=== PATIENT | female | born 1980 ===

== ENCOUNTER 2017-05-21 07:27 | Inpatient (IN) | payer BC ==
[2017-05-21] MEDS ORDERED: Nalbuphine 20 MG/1 ML Amp IVPUSH PRN (08:00)
[2017-05-21] MEDS ORDERED: Oxytocin/Lactated Ringers 10 UNIT/1,000 ML BAG IV SCH (08:00)
[2017-05-21] MEDS ORDERED: Sodium Chloride 0.9% 10 ML Syringe FLUSH PRN (08:00)
[2017-05-21] MEDS: Lactated Ringers 1,000 ML IV SCH ×3 (08:10→12:30)
[2017-05-21] MEDS ORDERED: Ampicillin 2 GM in Sodium Chloride 0.9% 100 ML IV ONE (08:15)
--- NOTE | 2017-05-21 10:20 | HP ---
DATE OF ADMISSION: 05/21/2017 ADMISSION DIAGNOSIS: Term at 38 and 1/7th weeks gestational age, active labor, advanced cervical dilation. HISTORY OF PRESENT ILLNESS: The patient is a 36-year-old 5, para 4-0-0-4, female who is admitted in active labor. Her cervix is 5 to 6 cm dilated upon admission. She was esther approximately every 2 to 3 minutes/moderate intensity. She has a bulging bag of moreno. Her AUSTIN is 06/03/2017 as determined by an early ultrasound done at 19 and 5/7th weeks-specifically on 01/12/2015. Her last menstrual period was uncertain. She is admitted for labor and delivery. 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 Her LMP was uncertain and started on 07/09/2016. Because of the uncertainty, her AUSTIN is set by a 19 and 5/7th week ultrasound. It is confirmed by ultrasound done on 01/14/2017, 01/23/2017, and 02/26/2017. She is esther well and is not requesting any pain medication at this time. Her past history is significant for 4 vaginal deliveries occurring in 2002, 2006, 2007, 2010. First one was a female infant, last 3 have been male . Largest baby was 7 pounds, 10 ounces. All children are born in [place]. The patient developed some blood clot after delivery. She apparently needed a blood transfusion for the past and all those clots. Her has been significant for group B strep carrier status. She has gestational diabetes but very well controlled with diet. Her Cromwell testing was negative. She had late care. hemorrhage after second delivery with blood transfusion of several units. She has had some pruritus gravidarum for which she has been treated with Benadryl. She has had UTIs in . Her weight gain during has been from 178 pounds up to 187 pounds during the last half in the for approximately 10 pound weight gain. Her blood pressures have been normal. Fundal height growth has been appropriate. Laboratory testing in , blood is A positive with a negative antibody screen. She is rubella immune. RPR is nonreactive. Group B strep screen was positive on urine culture. Hepatitis B, surface antigen, and HIV assays were both negative. Her gonorrhea and chlamydia were both negative. Her second trimester testing showed a one hour GTT of 211. Her 3 hour was abnormal with a fasting blood sugar of 113, a 1 hour of 259 mg/dL, a 2 hour of 247 mg/dL, and a 3-hour blood sugar of 171 mg/dL. Platelets were 242 and hemoglobin of 13.0. ALLERGIES: None. CURRENT MEDICATIONS: 1. vitamins 1 daily. 2. Tylenol p.r.n. PAST MEDICAL HISTORY: 1. Vaginal delivery x4. 2. hemorrhage with a transfusion with second delivery. PAST SURGICAL HISTORY: Unremarkable. FAMILY HISTORY: Mother and father with diabetes and hypertension respectively. No related problems noted in the family. No anesthesia, bleeding, or blood clotting problems noted. SOCIAL HISTORY: The patient is . is Omari Jalloh. They live in [place], [place]. She does not work outside the home. She has not use any significant amounts of alcohol, drugs, or tobacco. REVIEW OF SYSTEMS: SKIN: Negative. CARDIOVASCULAR: No chest pain or exercise intolerance. RESPIRATORY: No shortness of breath or infectious symptoms. BREASTS: Negative. GI: Normal. : Findings consistent with . Musculoskeletal: Minimal edema to moderate edema in bilateral lower extremities. NEUROLOGIC: Normal. PHYSICAL EXAMINATION: VITAL SIGNS: On last evaluation in clinic, her blood pressure 124/86, weight was 186 pounds with pregravida weight reported as 178. heart rate is 138. SKIN: Warm, dry, without lesions. HEENT, NECK, and BACK: Within normal limits. LUNGS: Clear with good breath sounds in all lung clemente. CARDIOVASCULAR: Shows regular rate and rhythm without murmurs. BREAST: Not done today, having been done at first visit and found to be normal. ABDOMEN: Protuberant with , with a fundal height on last evaluation 37 cm. Baby is felt to be in a vertex presentation by Yared maneuvers. : Cervical exam shows cervix to be 5 to 6 cm, soft, very stretchy, 95% effaced, felt to be head. EXTREMITIES AND NEUROLOGICAL: Grossly within normal limits. ASSESSMENT: 1. Term intrauterine at 38 and 1/7th weeks gestational age, active labor with advanced cervical dilation. 2. Group B strep positive. The patient has received first dose of antibiotics. 3. Gestational diabetes-diet controlled with good sugars during the . 4. The patient is okay of epidural, but wants to try natural delivery. 5. The patient plans to nurse. PLAN: 1. Anticipate normal spontaneous vaginal delivery. 2. Antibiotics per protocol. Use ampicillin. 3. Make Pediatrics aware for gestational diabetes status. 4. Encouraged nursing after delivery. MMODAL /[id number]
[2017-05-21] MEDS ORDERED: Ampicillin 1 GM in Sodium Chloride 0.9% 100 ML IV SCH (12:00)
--- NOTE | 2017-05-21 13:21 | PCM.SN ---
- Free Text/Narrative Note: Patricia is a 36-year-old 5 now para 5005 female who was admitted on the a.m. 05/21/2017 in active labor. On admission she was approximate 5 cm dilated with bulging bag moreno. heart tones were somewhat flat but no significant decelerations are noted. She pushed approximately 3 contractions and delivered a viable, farmer, 3860 g (8 lbs. 8 oz.), 21.0 inch long male with Apgars of 8 and 9. She delivered over an intact perineum. Pitocin was started IV immediately after delivery the baby. Cord was clamped 2 and cut by the father of the baby. Because of the meconium- stained amniotic fluid the baby was then taken to the warmer for evaluation and treatment under the care of Dr. Duane Vergara dye boarding machine operator who was present for the delivery. Cord blood was obtained. The placenta and then delivered without problems in a [place] presentation. It appeared intact and complete. It was discarded per patient desire. Perineum was inspected and found to be intact. No significant lacerations or abrasions were noted. Patient's uterus firmed up well with Pitocin and no significant bleeding was noted. Estimated blood loss was 100 mL. Patient plans to nurse. Condition: Good
[2017-05-21] MEDS ORDERED: Docusate Sodium 100 MG Cap PO PRN (14:15)
[2017-05-21] MEDS ORDERED: Benzocaine/Menthol 20%-0.5% Spray 56 GM Canister TOP PRN (14:15)
[2017-05-21] MEDS ORDERED: Acetaminophen 325 MG Tab PO PRN (14:15)
[2017-05-21] MEDS ORDERED: Lanolin 100% Cream 7 GM Tube TOP PRN (14:15)
[2017-05-21] MEDS ORDERED: Witch Hazel Medicated Pads 100/Jar TOP PRN (14:15)
[2017-05-21] MEDS: Ibuprofen 600 MG Tab PO PRN (15:44)
[2017-05-22] MEDS: Ibuprofen 600 MG Tab PO PRN ×3 (02:35→19:00)
--- NOTE | 2017-05-22 07:55 | PCM.SN ---
- Free Text/Narrative Note: Patricia is PPD 1-doing well. Minimal lochia, voiding well. And without problems. She is nursing. Patient is afebrile, vital signs stable. Abdomen soft, nontender. Uterus at the umbilicus. Legs nontender. Assessment/plan: day 1-good recovery. Recommend routine cares. Home tomorrow per patient desire.
[2017-05-22] MEDS ORDERED: Diphtheria,Pertussis(Acell),Tetanus Vaccine 0.5 ML SDV IM ONE (09:04)
[2017-05-23] MEDS: Ibuprofen 600 MG Tab PO PRN (05:11)
--- NOTE | 2017-05-23 08:30 | PCM.DCSUM1 ---
Discharge Summary - Hospital Course Free Text/Narrative:: Patricia is a 36-year-old 5 now para 5005 female who was admitted on the a.m. 05/21/2017 in active labor. On admission she was approximate 5 cm dilated with bulging bag moreno. heart tones were somewhat flat but no significant decelerations are noted. She pushed approximately 3 contractions and delivered a viable, farmer, 3860 g (8 lbs. 8 oz.), 21.0 inch long male with Apgars of 8 and 9. She delivered over an intact perineum. Pitocin was started IV immediately after delivery the baby. Cord was clamped 2 and cut by the father of the baby. Because of the meconium- stained amniotic fluid the baby was then taken to the warmer for evaluation and treatment under the care of Dr. Duane Vergara lpn rn hospice who was present for the delivery. Cord blood was obtained. The placenta and then delivered without problems in a [place] presentation. It appeared intact and complete. It was discarded per patient desire. Perineum was inspected and found to be intact. No significant lacerations or abrasions were noted. Patient's uterus firmed up well with Pitocin and no significant bleeding was noted. Estimated blood loss was 100 mL. Patient plans to nurse. patient is done well. She is nursing well. She has minimal lochia, she is voiding well. She is desiring to be discharged home. - Discharge Data Discharge Date: 05/23/17 Discharge Disposition: Home, Self-Care 01 Condition: Good - Patient Instructions Diet: Regular Diet as Tolerated (nursing diet was increased calories and calcium as directed.) Activity: As Tolerated (No intercourse or tampons until bleeding resolves) Driving: May Drive Today Showering/Bathing: May Shower (May take a bath) Notify Provider of: Fever, Increased Pain, Swelling and Redness, Nausea and/or Vomiting - Discharge Plan Home Medications: Home Meds PNV95/Ferrous Fumarate/FA [ Tablet] 1 each PO DAILY 01/12/17 [History] Ibuprofen [IJD: Ibuprofen] 600 mg PO Q4H PRN #30 tablet 05/23/17 [Rx] Referrals: Ke Kay MD [Physician] - (Return to clinic-Dr. kay-6 weeks.) - Discharge Summary/Plan Comment DC Time >30 min.: No Discharge Summary/Plan Comment: Discharge instructions: 1. Discharge home 2. Regular, high fiber, nursing diet was increased calories and calcium as directed. 3. Precautions given concern increased pain, bleeding, temperature, signs/ symptoms of DVT/PE. 4. Medications per home medication was printed, discussed with and given to the patient. 5. Return to clinic-Dr. diop-6 weeks. Diagnosis: Term -delivered Condition: Good - Patient Data Vitals - Most Recent: Last Vital Signs Temp 36.4 C 05/23/17 04:12 Pulse 81 05/23/17 04:12 Resp 16 05/23/17 04:12 BP 138/83 05/23/17 04:12 Pulse Ox 97 05/23/17 04:12 Weight - Most Recent: 84.731 kg I&O - Last 24 hours: Intake & Output 05/22/17 05/23/17 05/23/17 22:59 06:59 14:59 Intake Total 120 Balance 120 Med Orders - Current: Current Medications Acetaminophen (Tylenol) 650 mg PO Q4H PRN PRN Reason: mild pain or fever Benzocaine/Menthol (Dermoplast Pain Relief [place]) 0 gm TOP ASDIRECTED PRN PRN Reason: Perineal Comfort Measure Docusate Sodium (Colace) 100 mg PO BID PRN PRN Reason: Constipation Emollient Ointment (Lansinoh Hpa) 0 gm TOP ASDIRECTED PRN PRN Reason: Sore Nipples Ibuprofen (Motrin) 600 mg PO Q4H PRN PRN Reason: Mild pain or fever Last Admin: 05/23/17 05:11 Dose: 600 mg Witch Angelica (Tucks) 1 pad TOP ASDIRECTED PRN PRN Reason: Hemorrhoid pain Discontinued Medications Diphtheria/Tetanus/Acell Pertussis (Adacel) 0.5 ml IM .ONCE ONE Stop: 05/22/17 09:05 Last Admin: 05/22/17 11:06 Dose: 0.5 ml Ampicillin Sodium 2 gm/ Sodium (Chloride) 100 mls @ 200 mls/hr IV ONETIME ONE Stop: 05/21/17 08:44 Last Admin: 05/21/17 08:10 Dose: 200 mls/hr Ampicillin Sodium 1 gm/ Sodium (Chloride) 100 mls @ 200 mls/hr IV Q4H [place] Last Admin: 05/21/17 11:50 Dose: 200 mls/hr Lactated Ringer's (Ringers, Lactated) 1,000 mls @ 100 mls/hr IV ASDIRECTED [place] Last Admin: 05/21/17 12:30 Dose: 500 mls/hr Oxytocin/Lactated Ringer's (Pitocin In Lr 10 Units/1,000 Ml) 10 unit in 1,000 mls @ 500 mls/hr IV .CONTINUOUS [facility] Last Admin: 05/21/17 13:00 Dose: 500 mls/hr Nalbuphine HCl (Nubain) 10 mg IVPUSH Q2H PRN PRN Reason: Pain (moderate 4-6) Sodium Chloride (Saline Flush) 10 ml FLUSH ASDIRECTED PRN PRN Reason: Keep Vein Open *Q Meaningful Use (DIS) - VTE *Q VTE Criteria *Q: - Stroke *Q Stroke Criteria *Q: - AMI *Q AMI Criteria *Q:
[2017-05-23 13:32] VITALS: BP 143/72
== END 2017-05-23 13:35 | disposition home or self-care (01) | DRG 560 ==
LOC: JD.OBCHECK 07:27 → JD.OB 07:29 → JD.OBCHECK 08:00 → OBSVTOIN 12:57 → JD.OB 12:57
PROVIDERS: ADMIT Obstetrics & Gynecology; ATTEND Obstetrics & Gynecology
PROC: 10E0XZZ Delivery of Products of Conception, External Approach (ICD-10-PCS; principal; 2017-05-21)
PROC: 10907ZC Drainage of Amniotic Fluid, Therapeutic from Products of Conception, Via Natural or Artificial Opening (ICD-10-PCS; 2017-05-21)
PROC: 3E0234Z Introduction of Serum, Toxoid and Vaccine into Muscle, Percutaneous Approach (ICD-10-PCS; 2017-05-21)
DX: O99.824 Streptococcus B carrier state complicating childbirth (principal); Z3A.38 38 weeks gestation of pregnancy; Z37.0 Single live birth; O24.420 Gestational diabetes mellitus in childbirth, diet controlled; Z23 Encounter for immunization; O69.81X0 Labor and delivery complicated by cord around neck, without compression, not applicable or unspecified; O77.0 Labor and delivery complicated by meconium in amniotic fluid
CPT/HCPCS: 36415; 85027; 90715; A9270-GY; J0290; J2590; J7030; J7120

== ENCOUNTER 2017-05-24 03:26 | Observation (INO) | payer BC ==
[2017-05-24] MEDS ORDERED: Naloxone 2 MG/2 ML Syringe ONE (03:33)
--- NOTE | 2017-05-24 04:01 | EDM.PDOC ---
ED HPI GENERAL MEDICAL PROBLEM - General Chief Complaint: Neuro Symptoms/Deficits Stated Complaint: BACK & STOMACH PAIN Time Seen by Provider: 05/24/17 03:26 - History of Present Illness INITIAL COMMENTS - FREE TEXT/NARRATIVE: 36-year-old female presents emergency room with decreased level of consciousness and shortness of breath. The patient is a 5 para 5 who is now 3 days . Yesterday she was discharged from the hospital. Upon arriving home she noticed some back pain she's been having significant back pain for the last 3 months after a fall. The pain seems to be in the upper lumbar region. She's had no imaging done because of the . After she got home from the hospital she noticed some shortness of breath. About 1:00 this morning her noticed that she was moaning and breathing an easily. After this gone on for a while he noticed that she was less responsive and wouldn't answer questions he and a coworker carried the patient out to the car where she was brought to the hospital where she had to be helped with 2 people out of the car into a wheelchair. The patient had gestational diabetes with this . About 3 months ago she had a syncopal type episode and fell and her back is been hurting her %. This is the same type of back pain she is describing at this point. 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: Endocrine/Metabolic History: Reports: Diabetes, Gestational Other Endocrine/Metabolic History: diet controlled gestational diabetes Hematologic History: Reports: Blood Transfusion(s) Dermatologic History: Reports: Other (See Below) Other Dermatologic History: pruritus gravidarum Social & Family History - Family History Family Medical History: Noncontributory - Tobacco Use Smoking Status *Q: Never Smoker Second Hand Smoke Exposure: No - Recreational Drug Use Recreational Drug Use: No ED ROS GENERAL - Review of Systems Review Of Systems: See Below Constitutional: Reports: No Symptoms HEENT: Reports: No Symptoms Respiratory: Reports: Shortness of Breath, Pleuritic Chest Pain. Denies: Wheezing, Cough, Sputum Cardiovascular: Reports: No Symptoms Endocrine: Reports: No Symptoms GI/Abdominal: Reports: No Symptoms : Reports: Other (What sounds like a normal course) Musculoskeletal: Reports: Back Pain Skin: Reports: No Symptoms Neurological: Reports: Other (As stated above) Psychiatric: Reports: No Symptoms ED EXAM, NEURO - Physical Exam Exam: See Below Exam Limited By: Other (The patient was minimally responsive upon arrival would not answer questions) General Appearance: Other (Upon arrival patient is minimally responsive after aggressive sternal rub the patient did wake up and stayed awake and eventually cleared. It appears there is a typo on the pulse oximetry she was 100% on room air) Eye Exam: Bilateral Eye: EOMI, Normal Inspection, PERRL Ears: Normal External Exam, Normal Canal, Hearing Grossly Normal, Normal TMs Nose: Normal Inspection, Normal Mucosa, No Blood Throat/Mouth: Normal Inspection Head Exam: Atraumatic, Normocephalic Neck: Normal Inspection, Supple, Non-Tender, Full Range of Motion. No: Lymphadenopathy (L), Lymphadenopathy (R) Respiratory/Chest: No Respiratory Distress, Lungs Clear, Normal Breath Sounds Cardiovascular: Regular Rate, Rhythm, No Edema, No Murmur GI/Abdominal: Normal Bowel Sounds, Soft, Other (She has some right upper quadrant discomfort. Her fundal height is perhaps a little higher than one would expect vaginal discharge is not excessive) Neurological: Other (Patient is more alert at this time and answering questions appropriately) Course - Vital Signs Last Recorded V/S: Last Vital Signs Temp 36.4 C 05/24/17 14:57 Pulse 70 05/24/17 14:57 Resp 14 05/24/17 14:57 BP 121/78 05/24/17 14:57 Pulse Ox 97 05/24/17 14:57 - Orders/Labs/Meds Labs: Laboratory Tests 05/24/17 05/24/17 05/24/17 Range/Units 03:34 03:35 03:35 WBC 9.41 (3.98-10.04) K/mm3 RBC 4.04 (3.98-5.22) M/mm3 Hgb 11.8 (11.2-15.7) gm/L Hct 35.1 (34.1-44.9) % MCV 86.9 (79.4-94.8) fl MCH 29.2 (25.6-32.2) pg MCHC 33.6 (32.2-35.5) g/dl RDW Std Deviation 40.5 (36.4-46.3) fL Plt Count 226 (182-369) K/mm3 MPV 10.6 (9.4-12.3) fl Neut % (Auto) 66.2 (34.0-71.1) % Lymph % (Auto) 24.3 (19.3-51.7) % [place] % (Auto) 8.3 (4.7-12.5) % Eos % (Auto) 1.0 (0.7-5.8) Baso % (Auto) 0.1 (0.1-1.2) % Neut # (Auto) 6.23 H (1.56-6.13) K/mm3 Lymph # (Auto) 2.29 (1.18-3.74) K/mm3 [place] # (Auto) 0.78 H (0.24-0.36) K/mm3 Eos # (Auto) 0.09 (0.04-0.36) K/mm3 Baso # (Auto) 0.01 (0.01-0.08) K/mm3 PT (8.0-13.0) SECONDS INR APTT (22-36) SECONDS D-Dimer, Quantitative (0.19-0.59) mg/L Puncture Site ABG pH (7.35-7.45) ABG pCO2 (35.0-45.0) mmHg ABG pO2 (80.0-100.0) mmHg ABG HCO3 (22.0-26.0) meq/L ABG O2 Saturation (96.0-97.0) % ABG Base Excess (-2-2.0) Fletcher Test FiO2 (21.00-100.00) % Sodium 139 (136-145) mEq/L Potassium 3.8 (3.5-5.1) mEq/L Chloride 104 (98-107) mEq/L Carbon Dioxide 27 (21-32) mEq/L Anion Gap 11.8 (5-15) BUN 9 (7-18) mg/dL Creatinine 0.9 (0.55-1.02) mg/dL Est Cr Clr Drug Dosing 75.16 mL/min Estimated GFR (MDRD) > 60 (>60) mL/min BUN/Creatinine Ratio 10.0 L (14-18) Glucose 122 H (74-106) mg/dL POC Glucose 125 H (70-105) mg/dL Lactic Acid (0.4-2.0) mmol/L Calcium 8.6 (8.5-10.1) mg/dL Magnesium (1.8-2.4) mg/dl Total Bilirubin 1.7 H (0.2-1.0) mg/dL Direct Bilirubin (0.0-0.2) mg/dl GGT (5-55) U/L AST 151 H (15-37) U/L ALT 193 H (14-59) U/L Alkaline Phosphatase 267 H (46-116) U/L Total Protein 6.5 (6.4-8.2) g/dl Albumin 2.6 L (3.4-5.0) g/dl Globulin 3.9 gm/dL Albumin/Globulin Ratio 0.7 L (1-2) Urine Color (Yellow) Urine Appearance (Clear) Urine pH (5.0-8.0) Ur Specific [place] (1.005-1.030) Urine Protein (Negative) Urine Glucose (UA) (Negative) Urine Ketones (Negative) Urine Occult Blood (Negative) Urine Nitrite (Negative) Urine Bilirubin (Negative) Urine Urobilinogen (0.2-1.0) Ur Leukocyte Esterase (Negative) Urine RBC (0-5) /hpf Urine WBC (0-5) /hpf Urine WBC Clumps (NOT SEEN) /hpf Ur Epithelial Cells (0-5) /hpf Ur Transition Epith Cell (0-5) Calcium Oxalate Crystal (NONE) Urine Bacteria (FEW) /hpf Urine Mucus (FEW) /hpf Urine Yeast (NOT SEEN) Salicylates (2.8-20) mg/dL Urine Opiates Screen (NEGATIVE) Ur Buprenorphine Scrn (NEGATIVE) Ur Oxycodone Screen (NEGATIVE) Urine Methadone Screen (NEGATIVE) Ur Propoxyphene Screen (NEGATIVE) Acetaminophen 0 L (10-30) ug/mL Ur Barbiturates Screen (NEGATIVE) Ur Tricyclics Screen (NEGATIVE) Ur Phencyclidine Scrn (NEGATIVE) Ur Amphetamine Screen (NEGATIVE) U Methamphetamines Scrn (NEGATIVE) U Benzodiazepines Scrn (NEGATIVE) U Cocaine Metab Screen (NEGATIVE) U Marijuana (THC) Screen (NEGATIVE) Ethyl Alcohol 0.00 (0.00) gm% 05/24/17 05/24/17 05/24/17 Range/Units 03:35 03:35 03:35 WBC (3.98-10.04) K/mm3 RBC (3.98-5.22) M/mm3 Hgb (11.2-15.7) gm/L Hct (34.1-44.9) % MCV (79.4-94.8) fl MCH (25.6-32.2) pg MCHC (32.2-35.5) g/dl RDW Std Deviation (36.4-46.3) fL Plt Count (182-369) K/mm3 MPV (9.4-12.3) fl Neut % (Auto) (34.0-71.1) % Lymph % (Auto) (19.3-51.7) % [place] % (Auto) (4.7-12.5) % Eos % (Auto) (0.7-5.8) Baso % (Auto) (0.1-1.2) % Neut # (Auto) (1.56-6.13) K/mm3 Lymph # (Auto) (1.18-3.74) K/mm3 [place] # (Auto) (0.24-0.36) K/mm3 Eos # (Auto) (0.04-0.36) K/mm3 Baso # (Auto) (0.01-0.08) K/mm3 PT (8.0-13.0) SECONDS INR APTT (22-36) SECONDS D-Dimer, Quantitative 3.92 H (0.19-0.59) mg/L Puncture Site ABG pH (7.35-7.45) ABG pCO2 (35.0-45.0) mmHg ABG pO2 (80.0-100.0) mmHg ABG HCO3 (22.0-26.0) meq/L ABG O2 Saturation (96.0-97.0) % ABG Base Excess (-2-2.0) Fletcher Test FiO2 (21.00-100.00) % Sodium (136-145) mEq/L Potassium (3.5-5.1) mEq/L Chloride (98-107) mEq/L Carbon Dioxide (21-32) mEq/L Anion Gap (5-15) BUN (7-18) mg/dL Creatinine (0.55-1.02) mg/dL Est Cr Clr Drug Dosing mL/min Estimated GFR (MDRD) (>60) mL/min BUN/Creatinine Ratio (14-18) Glucose (74-106) mg/dL POC Glucose (70-105) mg/dL Lactic Acid (0.4-2.0) mmol/L Calcium (8.5-10.1) mg/dL Magnesium 1.6 L (1.8-2.4) mg/dl Total Bilirubin (0.2-1.0) mg/dL Direct Bilirubin (0.0-0.2) mg/dl GGT (5-55) U/L AST (15-37) U/L ALT (14-59) U/L Alkaline Phosphatase (46-116) U/L Total Protein (6.4-8.2) g/dl Albumin (3.4-5.0) g/dl Globulin gm/dL Albumin/Globulin Ratio (1-2) Urine Color (Yellow) Urine Appearance (Clear) Urine pH (5.0-8.0) Ur Specific [place] (1.005-1.030) Urine Protein (Negative) Urine Glucose (UA) (Negative) Urine Ketones (Negative) Urine Occult Blood (Negative) Urine Nitrite (Negative) Urine Bilirubin (Negative) Urine Urobilinogen (0.2-1.0) Ur Leukocyte Esterase (Negative) Urine RBC (0-5) /hpf Urine WBC (0-5) /hpf Urine WBC Clumps (NOT SEEN) /hpf Ur Epithelial Cells (0-5) /hpf Ur Transition Epith Cell (0-5) Calcium Oxalate Crystal (NONE) Urine Bacteria (FEW) /hpf Urine Mucus (FEW) /hpf Urine Yeast (NOT SEEN) Salicylates < 0.2 L (2.8-20) mg/dL Urine Opiates Screen (NEGATIVE) Ur Buprenorphine Scrn (NEGATIVE) Ur Oxycodone Screen (NEGATIVE) Urine Methadone Screen (NEGATIVE) Ur Propoxyphene Screen (NEGATIVE) Acetaminophen (10-30) ug/mL Ur Barbiturates Screen (NEGATIVE) Ur Tricyclics Screen (NEGATIVE) Ur Phencyclidine Scrn (NEGATIVE) Ur Amphetamine Screen (NEGATIVE) U Methamphetamines Scrn (NEGATIVE) U Benzodiazepines Scrn (NEGATIVE) U Cocaine Metab Screen (NEGATIVE) U Marijuana (THC) Screen (NEGATIVE) Ethyl Alcohol (0.00) gm% 05/24/17 05/24/17 05/24/17 Range/Units 03:35 03:55 03:55 WBC (3.98-10.04) K/mm3 RBC (3.98-5.22) M/mm3 Hgb (11.2-15.7) gm/L Hct (34.1-44.9) % MCV (79.4-94.8) fl MCH (25.6-32.2) pg MCHC (32.2-35.5) g/dl RDW Std Deviation (36.4-46.3) fL Plt Count (182-369) K/mm3 MPV (9.4-12.3) fl Neut % (Auto) (34.0-71.1) % Lymph % (Auto) (19.3-51.7) % [place] % (Auto) (4.7-12.5) % Eos % (Auto) (0.7-5.8) Baso % (Auto) (0.1-1.2) % Neut # (Auto) (1.56-6.13) K/mm3 Lymph # (Auto) (1.18-3.74) K/mm3 [place] # (Auto) (0.24-0.36) K/mm3 Eos # (Auto) (0.04-0.36) K/mm3 Baso # (Auto) (0.01-0.08) K/mm3 PT 9.4 (8.0-13.0) SECONDS INR 0.87 APTT 24 (22-36) SECONDS D-Dimer, Quantitative (0.19-0.59) mg/L Puncture Site ABG pH (7.35-7.45) ABG pCO2 (35.0-45.0) mmHg ABG pO2 (80.0-100.0) mmHg ABG HCO3 (22.0-26.0) meq/L ABG O2 Saturation (96.0-97.0) % ABG Base Excess (-2-2.0) Fletcher Test FiO2 (21.00-100.00) % Sodium (136-145) mEq/L Potassium (3.5-5.1) mEq/L Chloride (98-107) mEq/L Carbon Dioxide (21-32) mEq/L Anion Gap (5-15) BUN (7-18) mg/dL Creatinine (0.55-1.02) mg/dL Est Cr Clr Drug Dosing mL/min Estimated GFR (MDRD) (>60) mL/min BUN/Creatinine Ratio (14-18) Glucose (74-106) mg/dL POC Glucose (70-105) mg/dL Lactic Acid (0.4-2.0) mmol/L Calcium (8.5-10.1) mg/dL Magnesium (1.8-2.4) mg/dl Total Bilirubin (0.2-1.0) mg/dL Direct Bilirubin 1.40 H (0.0-0.2) mg/dl GGT 46 (5-55) U/L AST (15-37) U/L ALT (14-59) U/L Alkaline Phosphatase (46-116) U/L Total Protein (6.4-8.2) g/dl Albumin (3.4-5.0) g/dl Globulin gm/dL Albumin/Globulin Ratio (1-2) Urine Color (Yellow) Urine Appearance (Clear) Urine pH (5.0-8.0) Ur Specific [place] (1.005-1.030) Urine Protein (Negative) Urine Glucose (UA) (Negative) Urine Ketones (Negative) Urine Occult Blood (Negative) Urine Nitrite (Negative) Urine Bilirubin (Negative) Urine Urobilinogen (0.2-1.0) Ur Leukocyte Esterase (Negative) Urine RBC (0-5) /hpf Urine WBC (0-5) /hpf Urine WBC Clumps (NOT SEEN) /hpf Ur Epithelial Cells (0-5) /hpf Ur Transition Epith Cell (0-5) Calcium Oxalate Crystal (NONE) Urine Bacteria (FEW) /hpf Urine Mucus (FEW) /hpf Urine Yeast (NOT SEEN) Salicylates (2.8-20) mg/dL Urine Opiates Screen (NEGATIVE) Ur Buprenorphine Scrn (NEGATIVE) Ur Oxycodone Screen (NEGATIVE) Urine Methadone Screen (NEGATIVE) Ur Propoxyphene Screen (NEGATIVE) Acetaminophen (10-30) ug/mL Ur Barbiturates Screen (NEGATIVE) Ur Tricyclics Screen (NEGATIVE) Ur Phencyclidine Scrn (NEGATIVE) Ur Amphetamine Screen (NEGATIVE) U Methamphetamines Scrn (NEGATIVE) U Benzodiazepines Scrn (NEGATIVE) U Cocaine Metab Screen (NEGATIVE) U Marijuana (THC) Screen (NEGATIVE) Ethyl Alcohol (0.00) gm% 05/24/17 05/24/17 05/24/17 Range/Units 03:59 04:05 04:14 WBC (3.98-10.04) K/mm3 RBC (3.98-5.22) M/mm3 Hgb (11.2-15.7) gm/L Hct (34.1-44.9) % MCV (79.4-94.8) fl MCH (25.6-32.2) pg MCHC (32.2-35.5) g/dl RDW Std Deviation (36.4-46.3) fL Plt Count (182-369) K/mm3 MPV (9.4-12.3) fl Neut % (Auto) (34.0-71.1) % Lymph % (Auto) (19.3-51.7) % [place] % (Auto) (4.7-12.5) % Eos % (Auto) (0.7-5.8) Baso % (Auto) (0.1-1.2) % Neut # (Auto) (1.56-6.13) K/mm3 Lymph # (Auto) (1.18-3.74) K/mm3 [place] # (Auto) (0.24-0.36) K/mm3 Eos # (Auto) (0.04-0.36) K/mm3 Baso # (Auto) (0.01-0.08) K/mm3 PT (8.0-13.0) SECONDS INR APTT (22-36) SECONDS D-Dimer, Quantitative (0.19-0.59) mg/L Puncture Site Rt radial ABG pH 7.44 (7.35-7.45) ABG pCO2 37.6 (35.0-45.0) mmHg ABG pO2 94.0 (80.0-100.0) mmHg ABG HCO3 24.8 (22.0-26.0) meq/L ABG O2 Saturation 96.3 (96.0-97.0) % ABG Base Excess 1.2 (-2-2.0) Flethcer Test Positive FiO2 21.00 (21.00-100.00) % Sodium (136-145) mEq/L Potassium (3.5-5.1) mEq/L Chloride (98-107) mEq/L Carbon Dioxide (21-32) mEq/L Anion Gap (5-15) BUN (7-18) mg/dL Creatinine (0.55-1.02) mg/dL Est Cr Clr Drug Dosing mL/min Estimated GFR (MDRD) (>60) mL/min BUN/Creatinine Ratio (14-18) Glucose (74-106) mg/dL POC Glucose (70-105) mg/dL Lactic Acid 0.9 (0.4-2.0) mmol/L Calcium (8.5-10.1) mg/dL Magnesium (1.8-2.4) mg/dl Total Bilirubin (0.2-1.0) mg/dL Direct Bilirubin (0.0-0.2) mg/dl GGT (5-55) U/L AST (15-37) U/L ALT (14-59) U/L Alkaline Phosphatase (46-116) U/L Total Protein (6.4-8.2) g/dl Albumin (3.4-5.0) g/dl Globulin gm/dL Albumin/Globulin Ratio (1-2) Urine Color (Yellow) Urine Appearance (Clear) Urine pH (5.0-8.0) Ur Specific [place] (1.005-1.030) Urine Protein (Negative) Urine Glucose (UA) (Negative) Urine Ketones (Negative) Urine Occult Blood (Negative) Urine Nitrite (Negative) Urine Bilirubin (Negative) Urine Urobilinogen (0.2-1.0) Ur Leukocyte Esterase (Negative) Urine RBC (0-5) /hpf Urine WBC (0-5) /hpf Urine WBC Clumps (NOT SEEN) /hpf Ur Epithelial Cells (0-5) /hpf Ur Transition Epith Cell (0-5) Calcium Oxalate Crystal (NONE) Urine Bacteria (FEW) /hpf Urine Mucus (FEW) /hpf Urine Yeast (NOT SEEN) Salicylates (2.8-20) mg/dL Urine Opiates Screen Negative (NEGATIVE) Ur Buprenorphine Scrn Negative (NEGATIVE) Ur Oxycodone Screen Negative (NEGATIVE) Urine Methadone Screen Negative (NEGATIVE) Ur Propoxyphene Screen Negative (NEGATIVE) Acetaminophen (10-30) ug/mL Ur Barbiturates Screen Negative (NEGATIVE) Ur Tricyclics Screen Negative (NEGATIVE) Ur Phencyclidine Scrn Negative (NEGATIVE) Ur Amphetamine Screen Negative (NEGATIVE) U Methamphetamines Scrn Negative (NEGATIVE) U Benzodiazepines Scrn Negative (NEGATIVE) U Cocaine Metab Screen Negative (NEGATIVE) U Marijuana (THC) Screen Negative (NEGATIVE) Ethyl Alcohol (0.00) gm% 05/24/17 Range/Units 04:14 WBC (3.98-10.04) K/mm3 RBC (3.98-5.22) M/mm3 Hgb (11.2-15.7) gm/L Hct (34.1-44.9) % MCV (79.4-94.8) fl MCH (25.6-32.2) pg MCHC (32.2-35.5) g/dl RDW Std Deviation (36.4-46.3) fL Plt Count (182-369) K/mm3 MPV (9.4-12.3) fl Neut % (Auto) (34.0-71.1) % Lymph % (Auto) (19.3-51.7) % [place] % (Auto) (4.7-12.5) % Eos % (Auto) (0.7-5.8) Baso % (Auto) (0.1-1.2) % Neut # (Auto) (1.56-6.13) K/mm3 Lymph # (Auto) (1.18-3.74) K/mm3 [place] # (Auto) (0.24-0.36) K/mm3 Eos # (Auto) (0.04-0.36) K/mm3 Baso # (Auto) (0.01-0.08) K/mm3 PT (8.0-13.0) SECONDS INR APTT (22-36) SECONDS D-Dimer, Quantitative (0.19-0.59) mg/L Puncture Site ABG pH (7.35-7.45) ABG pCO2 (35.0-45.0) mmHg ABG pO2 (80.0-100.0) mmHg ABG HCO3 (22.0-26.0) meq/L ABG O2 Saturation (96.0-97.0) % ABG Base Excess (-2-2.0) Fletcher Test FiO2 (21.00-100.00) % Sodium (136-145) mEq/L Potassium (3.5-5.1) mEq/L Chloride (98-107) mEq/L Carbon Dioxide (21-32) mEq/L Anion Gap (5-15) BUN (7-18) mg/dL Creatinine (0.55-1.02) mg/dL Est Cr Clr Drug Dosing mL/min Estimated GFR (MDRD) (>60) mL/min BUN/Creatinine Ratio (14-18) Glucose (74-106) mg/dL POC Glucose (70-105) mg/dL Lactic Acid (0.4-2.0) mmol/L Calcium (8.5-10.1) mg/dL Magnesium (1.8-2.4) mg/dl Total Bilirubin (0.2-1.0) mg/dL Direct Bilirubin (0.0-0.2) mg/dl GGT (5-55) U/L AST (15-37) U/L ALT (14-59) U/L Alkaline Phosphatase (46-116) U/L Total Protein (6.4-8.2) g/dl Albumin (3.4-5.0) g/dl Globulin gm/dL Albumin/Globulin Ratio (1-2) Urine Color Yellow (Yellow) Urine Appearance Clear (Clear) Urine pH 7.0 (5.0-8.0) Ur Specific [place] 1.015 (1.005-1.030) Urine Protein Negative (Negative) Urine Glucose (UA) Negative (Negative) Urine Ketones Negative (Negative) Urine Occult Blood Negative (Negative) Urine Nitrite Negative (Negative) Urine Bilirubin 1+ H (Negative) Urine Urobilinogen 1.0 (0.2-1.0) Ur Leukocyte Esterase Negative (Negative) Urine RBC 0-5 (0-5) /hpf Urine WBC 0-5 (0-5) /hpf Urine WBC Clumps Not seen (NOT SEEN) /hpf Ur Epithelial Cells 0-5 (0-5) /hpf Ur Transition Epith Cell 0-5 (0-5) Calcium Oxalate Crystal Few H (NONE) Urine Bacteria Moderate H (FEW) /hpf Urine Mucus Not seen (FEW) /hpf Urine Yeast Not seen (NOT SEEN) Salicylates (2.8-20) mg/dL Urine Opiates Screen (NEGATIVE) Ur Buprenorphine Scrn (NEGATIVE) Ur Oxycodone Screen (NEGATIVE) Urine Methadone Screen (NEGATIVE) Ur Propoxyphene Screen (NEGATIVE) Acetaminophen (10-30) ug/mL Ur Barbiturates Screen (NEGATIVE) Ur Tricyclics Screen (NEGATIVE) Ur Phencyclidine Scrn (NEGATIVE) Ur Amphetamine Screen (NEGATIVE) U Methamphetamines Scrn (NEGATIVE) U Benzodiazepines Scrn (NEGATIVE) U Cocaine Metab Screen (NEGATIVE) U Marijuana (THC) Screen (NEGATIVE) Ethyl Alcohol (0.00) gm% Meds: Medications Discontinued Medications Generic Name Dose Route Start Last Admin Trade Name Freq PRN Reason Stop Dose Admin Docusate Sodium 100 mg 05/24/17 07:29 Colace PO BID PRN Constipation Hydralazine HCl 20 mg 05/24/17 12:34 Apresoline IVPUSH Q4H PRN Hypertension Sodium Chloride 100 mls @ 60 mls/hr 05/24/17 05:30 05/24/17 05:43 Normal Saline IV 60 mls/hr ASDIRECTED [place] Administration Sodium Chloride 500 mls @ 999 mls/hr 05/24/17 05:31 05/24/17 05:57 Normal Saline IV 05/24/17 06:01 999 mls/hr .BOLUS ONE Administration Sodium Chloride 1,000 mls @ 125 mls/hr 05/24/17 05:45 Normal Saline IV ASDIRECTED [place] Sodium Chloride 1,000 mls @ 125 mls/hr 05/24/17 07:30 05/24/17 10:47 Normal Saline IV 125 mls/hr ASDIRECTED [place] Administration Magnesium Sulfate 2 gm/ Premix 50 mls @ 50 mls/hr 05/24/17 12:45 05/24/17 13: 35 IV 05/24/17 13:44 50 mls/hr ONETIME ONE Administration Iopamidol 100 ml 05/24/17 05:23 05/24/17 05:43 [id number] (76%) IVPUSH 05/24/17 05:24 100 ml ONETIME ONE Administration Magnesium Sulfate 1 dose 05/24/17 12:45 Pharmacy To Dose - Magnesium Replacement .XX ASDIRECTED [place] Metoprolol Tartrate 5 mg 05/24/17 12:34 Lopressor IVPUSH Q4H PRN Tachycardia Naloxone HCl Confirm 05/24/17 03:33 05/24/17 06:11 Narcan Administered 05/24/17 03:34 Not Given Dose 2 mg .ROUTE .STK-MED ONE Naloxone HCl 2 mg 05/24/17 03:42 05/24/17 03:37 Narcan IVPUSH 05/24/17 03:43 2 mg ONETIME ONE Administration Naloxone HCl 2 mg 05/24/17 03:42 05/24/17 03:34 Narcan IVPUSH 05/24/17 03:43 2 mg ONETIME ONE Administration Oxycodone/Acetaminophen 2 tab 05/24/17 08:13 05/24/17 08:21 Percocet 325-5 Mg PO 2 tab Q6H PRN Administration Pain Potassium Chloride 1 dose 05/24/17 12:45 Pharmacy To Dose - Potassium Replacement .XX ASDIRECTED [place] Sodium Chloride 10 ml 05/24/17 05:23 05/24/17 05:43 Saline Flush FLUSH 05/24/17 05:24 10 ml ONETIME ONE Administration - Re-Assessments/Exams Free Text/Narrative Re-Assessment/Exam: 05/24/17 05:[address] Nathan including the labs. The cause of this unremarkable responsiveness is unclear she recommends checking a head CT and a chest to make sure it is not an atypical PE. At this time the patient is more talkative and awake she is not to baseline but getting better we attempted Narcan with no success with vigorous sternal rub the patient did wake up and has stayed awake from that time and is been participating in answering questions and providing historical detail. Abdominal x-ray is negative as is lumbar spine. 05/24/17 06:[address] Nathan head CT unremarkable chest CT unremarkable albeit were waiting for an addendum. Dr. Nathan will come over and see the patient Departure - Departure Time of Disposition: 07:00 Disposition: Admitted As Inpatient 66 Clinical Impression: Abdominal pain, Unresponsiveness - Discharge Information
[2017-05-24 04:06] LABS: ACETAMINOPHEN 0 ug/mL (10-30)
[2017-05-24] MEDS ORDERED: Sodium Chloride 0.9% 10 ML Syringe FLUSH ONE (05:23)
[2017-05-24] MEDS ORDERED: Iopamidol 755 Mg/ML 100 ML Bottle IVPUSH ONE (05:23)
[2017-05-24] MEDS ORDERED: Sodium Chloride 0.9% 100 ML IV SCH (05:30)
[2017-05-24] MEDS ORDERED: Sodium Chloride 0.9% 500 ML IV ONE (05:31)
[2017-05-24] MEDS ORDERED: Sodium Chloride 0.9% 1,000 ML IV SCH ×2 (05:45→07:30)
[2017-05-24] MEDS ORDERED: Docusate Sodium 100 MG Cap PO PRN (07:29)
--- NOTE | 2017-05-24 07:56 | PCM.HP ---
H&P History of Present Illness - General Date of Service: 05/24/17 Admit Problem/Dx: Admission Diagnosis/Problem Admission Diagnosis/Problem Abdominal pain Source of Information: Patient, Significant Other History Limitations: Reports: Altered Mental Status - History of Present Illness Initial Comments - Free Text/Narative: 36 year old s/p on 05-21-17 who was discharged yesterday. Discharged at 1 pm 8-4. [place] great up until discharge. Immediately post discharge began having shortness of breath and RUQ pain. During the day her tried to let her rest. She reported it progressively got worse. Hurt to stand up straight. Over night she was up feeding baby. went to bed at 7 pm. When he woke up at 1 am or so she was moaning in bed and he found her difficulty to arouse. He and a co-worker got her dressed and brought her in to the hospital. She does report remembering them bringing her in. Is now in significant pain. care with Dr. Kay complicated by 1) Gestational diabetes not on insulin 2) Question of cholestasis of - had been on cholestyramine 3) Question of DVT DVT with second - records unavailable - no anticoagulation this . Onset of Symptoms: Reports: Today Quality: Reports: Stabbing Improves with: Reports: None Worsens with: Reports: None Associated Symptoms: Reports: No Other Symptoms Back Pain Score (Numeric/FACES): 10 - Related Data Allergies/Adverse Reactions: Allergies Allergy/AdvReac Type Severity Reaction Status Date / Time No Known Allergies Allergy Verified 01/12/17 12:23 Home Medications: Home Meds Ibuprofen [IJD: Ibuprofen] 600 mg PO Q4H PRN #30 tablet 05/23/17 [Rx] Past Medical History Genitourinary History: Reports: UTI, Recurrent Endocrine/Metabolic History: Reports: Diabetes, Gestational Other Endocrine/Metabolic History: diet controlled gestational diabetes Hematologic History: Reports: Blood Transfusion(s) Dermatologic History: Reports: Other (See Below) Other Dermatologic History: pruritus gravidarum Social & Family History - Family History Family Medical History: Noncontributory - Tobacco Use Smoking Status *Q: Never Smoker Second Hand Smoke Exposure: No - Recreational Drug Use Recreational Drug Use: No H&P Review of Systems - Review of Systems: Review Of Systems: See Below General: Reports: No Symptoms HEENT: Reports: No Symptoms Pulmonary: Reports: Shortness of Breath Cardiovascular: Reports: Chest Pain Gastrointestinal: Reports: Abdominal Pain. Denies: Constipation, Diarrhea, Nausea, Vomiting Genitourinary: Denies: Dysuria Musculoskeletal: Reports: No Symptoms Skin: Reports: No Symptoms Psychiatric: Reports: No Symptoms Neurological: Reports: No Symptoms Hematologic/Lymphatic: Reports: No Symptoms Immunologic: Reports: No Symptoms Exam - Exam Exam: See Below - Vital Signs Vital Signs: Last Vital Signs Temp 36.4 C 05/24/17 03:46 Pulse 76 05/24/17 03:46 Resp 30 H 05/24/17 03:46 BP 142/94 H 05/24/17 03:46 Pulse Ox 100 05/24/17 03:46 Weight: 81.647 kg - Exam General: Alert, Oriented, Mild Distress HEENT: Conjunctiva Clear, EACs Clear, EOMI, Mucosa Moist & [place], PERRLA Neck: Supple, Trachea Midline, 2 Lungs: Clear to Auscultation, Normal Respiratory Effort Cardiovascular: Regular Rate, Regular Rhythm GI/Abdominal Exam: Normal Bowel Sounds, Soft, No Organomegaly, No Distention, No Abnormal Bruit, Guarding (Female) Exam: Normal External Exam Back Exam: Normal Inspection, Full Range of Motion, NT Extremities: Normal Inspection, Normal Range of Motion, Non-Tender, No Pedal Edema, Normal Capillary Refill Skin: Warm, Dry, Intact Neurological: Cranial Nerves Intact, Reflexes Equal Bilateral Neuro Extensive - Mental Status: Alert, Oriented x3, Normal Mood/Affect, Normal Cognition Neuro Extensive - Motor, Sensory, Reflexes: CN II-XII Intact, Normal Gait, Normal Reflexes Psychiatric: Alert, Normal Affect, Normal Mood - Patient Data Result Diagrams: 05/24/17 03:35 05/24/17 03:35 *Q Meaningful Use (ADM) - VTE *Q VTE Criteria *Q: - Stroke *Q Stroke Criteria *Q: - AMI *Q AMI Criteria *Q: Problem List Initiated/Reviewed/Updated: Yes Orders Last 24hrs: Active Orders 24 hr Category Date Time Status Patient Status [ADT] Routine ADT 05/24/17 07:29 Active Activity as Tolerated [RC] PER UNIT ROUTINE Care 05/24/17 07:29 Active Vital Signs [RC] ASDIRECTED Care 05/24/17 07:29 Active Clear Liquid Diet [DIET] Diet 05/24/17 Lunch Active Abdomen Comp [US] Stat Exams 05/24/17 07:43 Ordered CBC WITH AUTO DIFF [HEME] AM Lab 05/26/17 05:11 Ordered CMP [COMPREHENSIVE METABOLIC PN,CMP] [CHEM] Routine Lab 05/25/17 07:34 Ordered Docusate Sodium [Colace] Med 05/24/17 07:29 Active 100 mg PO BID PRN Sodium Chloride 0.9% [Normal Saline] 1,000 ml Med 05/24/17 07:30 Active IV ASDIRECTED Assess Lochia [WOMSER] Per Unit Routine Oth 05/24/17 07:29 Ordered Assess Uterine Involution [WOMSER] Per Unit Routine Oth 05/24/17 07:29 Ordered Breast Pump [WOMSER] Per Unit Routine Oth 05/24/17 07:29 Ordered Heat Therapy [OM.PC] PRN Oth 05/24/17 07:30 Ordered Heat Therapy [OM.PC] PRN Oth 05/25/17 07:30 Ordered Medication Administration Instruction [OM.PC] Routine Oth 05/24/17 07:29 Ordered Perineal Care [OM.PC] Per Unit Routine Oth 05/24/17 07:29 Ordered Sitz Bath [OM.PC] Per Unit Routine Oth 05/24/17 07:29 Ordered Resuscitation Status Routine Resus Stat 05/24/17 07:29 Ordered Medication Orders Docusate Sodium (Colace) 100 mg PO BID PRN PRN Reason: Constipation Sodium Chloride (Normal Saline) 100 mls @ 60 mls/hr IV ASDIRECTED [facility] Last Admin: 05/24/17 05:43 Dose: 60 mls/hr Sodium Chloride (Normal Saline) 1,000 mls @ 125 mls/hr IV ASDIRECTED [facility] Assessment/Plan Comment:: day 3 status post who presented to ER somewhat obtunded, with shortness of breath and RUQ pain. 1) Differential diagnosis included neurological issues either from pre- ecclampsia or stroke however CT of head normal so that unlikely. Could be pre- ecclampsia related however blood pressure fine so that unlikely as well. Question history of DVT in the past CT angio of chest negative for PE so unlikely SOB from that and EKG normal as are labs. Suspect at this point gall bladder dysfunction. Ultrasound pending. Hospitalist will evaluate and make medical recommendations as well.
[2017-05-24] MEDS ORDERED: Acetaminophen/oxyCODONE 325-5 MG Tab PO PRN (08:13)
--- NOTE | 2017-05-24 09:51 | PCM.CONS ---
H&P History of Present Illness - General Date of Service: 05/24/17 Admit Problem/Dx: Admission Diagnosis/Problem Admission Diagnosis/Problem Abdominal pain Source of Information: Patient, Family, Old Records, Provider, RN Notes Reviewed History Limitations: Reports: No Limitations - History of Present Illness Initial Comments - Free Text/Narative: This is a 36 yo [place] female with past medical history of gestational diabetes who is 5 para 5 and day 3, was admitted for right upper quadrant pain with radiation to the back. Patient carries no history of GI illness. She denies any recent trauma or surgery. She further denies any signs of systemic infection. Patient was recently discharged here at [place] after giving to an 8lbs boy. She has done fairly well up until yesterday when she developed sharp pain that started on her right upper quadrant and went around her back. She took 3 Advil pills and had some relief. However when she sat down and breast-fed her abdominal pain came back. Currently she denies any GI symptoms. Initial workup from the emergency department shows an unremarkable CBC and ABG. Her PT and aPTT are both normal. However d-dimer is noted at 3.9. Her chemistry is remarkable for glucose of 122 , total bilirubin of 1.7, direct bilirubin of 1.4, magnesium of 1.6, AST of 151 , ALT of 193, alkaline phosphatase of 267, and albumin level of 2.6. Her UA is unimpressive for urinary tract infection. Her UDS is negative as well. Head CT scan V-rad report reads no acute findings. Chest CT with IV contrast V-rad report reads normal chest CT. Abdominal U/S report read Gallstones and Adenomyomatosis with Mildly Dilated Common Bile Duct Hospital Medicine was consulted for further help in evaluating her abdominal pain. Back Pain Score (Numeric/FACES): 10 - Related Data Allergies/Adverse Reactions: Allergies Allergy/AdvReac Type Severity Reaction Status Date / Time No Known Allergies Allergy Verified 01/12/17 12:23 Home Medications: Home Meds Ibuprofen [IJD: Ibuprofen] 600 mg PO Q4H PRN #30 tablet 05/23/17 [Rx] Past Medical History - Past Health History Medical/Surgical History: Denies Medical/Surgical History Genitourinary History: Reports: UTI, Recurrent [employer] PROVIDER History: Reports: Endocrine/Metabolic History: Reports: Diabetes, Gestational Other Endocrine/Metabolic History: diet controlled gestational diabetes Hematologic History: Reports: Blood Transfusion(s) Dermatologic History: Reports: Other (See Below) Other Dermatologic History: pruritus gravidarum Social & Family History - Family History Family Medical History: Noncontributory - Tobacco Use Smoking Status *Q: Never Smoker Second Hand Smoke Exposure: No - Caffeine Use Caffeine Use: Reports: Coffee - Recreational Drug Use Recreational Drug Use: No H&P Review of Systems - Review of Systems: Review Of Systems: See Below General: Denies: Fever, Chills, Malaise, Weakness, Fatigue HEENT: Reports: No Symptoms Pulmonary: Denies: Shortness of Breath Cardiovascular: Denies: Chest Pain, Palpitations, Dyspnea on Exertion Gastrointestinal: Reports: Abdominal Pain. Denies: Nausea, Vomiting Genitourinary: Reports: No Symptoms Musculoskeletal: Reports: No Symptoms Skin: Reports: No Symptoms Psychiatric: Denies: Depression, Anxiety, Cravings, Hallucinations, Suicidal Ideation, Homicidal Ideation Neurological: Denies: Confusion, Pre-Existing Deficit, Difficulty Walking, Weakness, Gait Disturbance Hematologic/Lymphatic: Reports: No Symptoms Immunologic: Reports: No Symptoms Exam - Exam Exam: See Below - Vital Signs Vital Signs: Last Vital Signs Temp 36.4 C 05/24/17 03:46 Pulse 76 05/24/17 03:46 Resp 30 H 05/24/17 03:46 BP 142/94 H 05/24/17 03:46 Pulse Ox 100 05/24/17 03:46 Weight: 81.647 kg - Exam General: Alert, Oriented, Cooperative. No: Mild Distress HEENT: Conjunctiva Clear, EACs Clear, EOMI, Hearing Intact, Mucosa Moist & [place] , Nares Patent, Normal Nasal Septum, Posterior Pharynx Clear, Pupils Equal, Pupils Reactive, TMs Clear Neck: Supple, Trachea Midline, +2 Carotid Pulse wo Bruit, Full Range of Motion Lungs: Clear to Auscultation, Normal Respiratory Effort Cardiovascular: Regular Rate, Regular Rhythm GI/Abdominal Exam: Normal Bowel Sounds, Soft, Non-Tender, No Organomegaly, No Distention, No Abnormal Bruit, No Mass (Female) Exam: Deferred Rectal (Female) Exam: Deferred Back Exam: Normal Inspection, Decreased Range of Motion Extremities: Normal Inspection, Normal Range of Motion, Non-Tender, Normal Capillary Refill, Other (Mild lower extremity edema) Skin: Warm, Dry, Intact Neuro Extensive - Mental Status: Oriented x3, Normal Cognition, Memory Intact Neuro Extensive - Motor, Sensory, Reflexes: CN II-XII Intact, Abnormal Gait Psychiatric: Alert, Normal Affect, Normal Mood - Patient Data Result Diagrams: 05/24/17 03:35 05/24/17 03:35 Diego Results Last 24 hrs: EKG 05/24/2017 shows NSR Consult PN Assessment/Plan POD#: 3 Procedures: Procedures: Post Day #3 BLOOD TYPING SEROLOGIC ABO (01/02/17) BLOOD TYPING SEROLOGIC RH(D) (01/02/17) CHYLMD TRACH DNA AMP PROBE (01/02/17) COMPLETE CBC W/AUTO DIFF WBC (04/07/17) COMPREHEN METABOLIC PANEL (05/15/17) DRUG TEST PRSMV INSTRMNT (01/12/17) GLUCOSE TEST (04/07/17) GLUCOSE TOLERANCE TEST (GTT) (04/17/17) HEPATITIS B SURFACE AG IA (01/02/17) MEDICAL NUTRITION INDIV IN (04/29/17) MICROBE SUSCEPTIBLE [place] (04/07/17) N.GONORRHOEAE DNA AMP PROB (01/02/17) OB US >/= 14 WKS SNGL FETUS (01/23/17) OB US FOLLOW-UP PER FETUS (02/26/17) OB US LIMITED FETUS(S) (01/12/17) RBC ANTIBODY SCREEN (01/02/17) ROUTINE VENIPUNCTURE (05/15/17) RUBELLA ANTIBODY (01/02/17) SYPHILIS TEST NON-TREP QUAL (01/02/17) URINALYSIS AUTO W/O SCOPE (05/15/17) URINALYSIS AUTO W/SCOPE (01/12/17) URINE BACTERIA CULTURE (04/07/17) URINE CULTURE/COLONY COUNT (05/15/17) Problem List Initiated/Reviewed/Updated: Yes My Orders Last 24 Hours: My Active Orders 05/24/17 09:50 DRUG SCREEN, URINE [URCHEM] Stat Plan: Assessment/Plan: This is a 36-year-old [place] female with past medical history of gestational diabetes who carries a history of 5 para 5 day 3 who was admitted for abdominal pain. 1. Abdominal Pain 2/2 Gall Stones and Adenomyomatosis 2. Gall Stones and Adenomyomatosis 3. Mildly Dilated Common Bile Duct 4. Transaminitis 5. Hyperbilirubinemia 6. Hypomagnesemia 7. Hx/o gestational Diabetes Recommendations: 1. After reviewing all diagnostic data to include imaging studies, we felt the etiology of her abdominal pain was related to gallbladder disease. We recommend pain medication to control her pain and general surgery consultation for further evaluation 2. would like confirmatory test for gestational diabetes. Informed and patient, it usually goes away after . Will order A1C test per 's request 3. Pharmacy to replete and monitor electrolytes abnormalities 4. Recommend nothing by mouth status until further evaluation by general surgery 5. The above recommendation has been discussed with Dr. Nathan, attending physician
--- NOTE | 2017-05-24 10:13 | US ---
Addendum: Sentence describing the gallbladder states "common tail artifact" which should be as follows: [place] tail artifact is identified compatible with adenomyosis. Other portions of the dictation remain the same. --- Addendum1 above dictated on [05/30/2017 11:02] by [Jorge A Ryder Hilton J.] --- --- Addendum1 above signed on [05/30/2017 11:03] by [Jorge A Ryder Hilton J.] --- --- Original report below dictated on [05/24/2017 09:58] by [Jorge A Ryder Hilton J.] --- --- Original report below signed on [05/24/2017 10:11] by [Jorge A Ryder Hilton J.] --- Abdominal ultrasound: Multiple real-time images of the abdomen were obtained. Comparison: No previous abdominal imaging. Technologist's note: Somewhat limited, patient medicated, limited cooperation Liver not optimally seen. No discrete abnormality is appreciated within the visualized portions of the liver. Gallbladder shows gallstones. Common tail artifact is identified compatible with adenomyosis. Common bile duct measures slightly prominent at 8.0 mm. Spleen size is normal. Distal aorta not seen. Mid and proximal aorta shows no aneurysmal dilatation. Minimal hydronephrosis of the right kidney believed to represent residual change from recent . Kidneys are otherwise unremarkable. Right kidney measures 10.1 cm in length. Left kidney measures 11.4 cm. Inferior vena cava is patent. Pancreas is incompletely seen. Visualized portions of the pancreas are within normal limits. Impression: 1. Gallstones and adenomyomatosis. No gallbladder wall thickening is identified. Common bile duct mildly dilated 8.0 mm. 2. Mild right sided hydronephrosis likely residual from recent . 3. No additional abnormality is appreciated on abdominal ultrasound. Diagnostic code #3 --- Addendum1 signed ---
[2017-05-24] MEDS ORDERED: Metoprolol Tartrate 5 MG/5 ML SDV IVPUSH PRN (12:34)
[2017-05-24] MEDS ORDERED: hydrALAZINE 20 MG/ML SDV IVPUSH PRN (12:34)
[2017-05-24] MEDS ORDERED: Magnesium Sulfate/Water 2 GM in Premix Bag 1 BAG IV ONE (12:45)
[2017-05-24 14:58] VITALS: BP 121/78
--- NOTE | 2017-05-24 17:37 | PCM.CONSN ---
- General Info Date of Service: 05/24/17 - Patient Data Vitals - Most Recent: Last Vital Signs Temp 97.6 F 05/24/17 14:57 Pulse 70 05/24/17 14:57 Resp 14 05/24/17 14:57 BP 121/78 05/24/17 14:57 Pulse Ox 97 05/24/17 14:57 Weight - Most Recent: 81.647 kg I&O - Last 24 Hours: Intake & Output 05/24/17 05/24/17 05/24/17 07:59 15:59 23:59 Intake Total 0 2619 Balance 0 2619 Lab Results Last 24 Hours: Laboratory Results - last 24 hr 05/24/17 Range/Units 12:01 Hemoglobin A1c 6.20 (4.50-6.20) % Med Orders - Current: Current Medications Docusate Sodium (Colace) 100 mg PO BID PRN PRN Reason: Constipation Hydralazine HCl (Apresoline) 20 mg IVPUSH Q4H PRN PRN Reason: Hypertension Sodium Chloride (Normal Saline) 100 mls @ 60 mls/hr IV ASDIRECTED [facility] Last Admin: 05/24/17 05:43 Dose: 60 mls/hr Sodium Chloride (Normal Saline) 1,000 mls @ 125 mls/hr IV ASDIRECTED [facility] Last Admin: 05/24/17 10:47 Dose: 125 mls/hr Magnesium Sulfate (Pharmacy To Dose - Magnesium Replacement) 1 dose .XX ASDIRECTED [facility] Metoprolol Tartrate (Lopressor) 5 mg IVPUSH Q4H PRN PRN Reason: Tachycardia Oxycodone/Acetaminophen (Percocet 325-5 Mg) 2 tab PO Q6H PRN PRN Reason: Pain Last Admin: 05/24/17 08:21 Dose: 2 tab Potassium Chloride (Pharmacy To Dose - Potassium Replacement) 1 dose .XX ASDIRECTED [facility] Discontinued Medications Sodium Chloride (Normal Saline) 500 mls @ 999 mls/hr IV .BOLUS ONE Stop: 05/24/17 06:01 Last Admin: 05/24/17 05:57 Dose: 999 mls/hr Sodium Chloride (Normal Saline) 1,000 mls @ 125 mls/hr IV ASDIRECTED [facility] Magnesium Sulfate 2 gm/ Premix 50 mls @ 50 mls/hr IV ONETIME ONE Stop: 05/24/17 13:44 Last Admin: 05/24/17 13:35 Dose: 50 mls/hr Iopamidol (Isovue-370 (76%)) 100 ml IVPUSH ONETIME ONE Stop: 05/24/17 05:24 Last Admin: 05/24/17 05:43 Dose: 100 ml Naloxone HCl (Narcan) Confirm Administered Dose 2 mg .ROUTE .STK-MED ONE Stop: 05/24/17 03:34 Last Admin: 05/24/17 06:11 Dose: Not Given Naloxone HCl (Narcan) 2 mg IVPUSH ONETIME ONE Stop: 05/24/17 03:43 Last Admin: 05/24/17 03:37 Dose: 2 mg Naloxone HCl (Narcan) 2 mg IVPUSH ONETIME ONE Stop: 05/24/17 03:43 Last Admin: 05/24/17 03:34 Dose: 2 mg Sodium Chloride (Saline Flush) 10 ml FLUSH ONETIME ONE Stop: 05/24/17 05:24 Last Admin: 05/24/17 05:43 Dose: 10 ml Consult PN Assessment/Plan Procedures: Procedures BLOOD TYPING SEROLOGIC ABO (01/02/17) BLOOD TYPING SEROLOGIC RH(D) (01/02/17) CHYLMD TRACH DNA AMP PROBE (01/02/17) COMPLETE CBC W/AUTO DIFF WBC (04/07/17) COMPREHEN METABOLIC PANEL (05/15/17) DRUG TEST PRSMV INSTRMNT (01/12/17) GLUCOSE TEST (04/07/17) GLUCOSE TOLERANCE TEST (GTT) (04/17/17) HEPATITIS B SURFACE AG IA (01/02/17) MEDICAL NUTRITION INDIV IN (04/29/17) MICROBE SUSCEPTIBLE DAMIAN (04/07/17) N.GONORRHOEAE DNA AMP PROB (01/02/17) OB US >/= 14 WKS SNGL FETUS (01/23/17) OB US FOLLOW-UP PER FETUS (02/26/17) OB US LIMITED FETUS(S) (01/12/17) RBC ANTIBODY SCREEN (01/02/17) ROUTINE VENIPUNCTURE (05/15/17) RUBELLA ANTIBODY (01/02/17) SYPHILIS TEST NON-TREP QUAL (01/02/17) URINALYSIS AUTO W/O SCOPE (05/15/17) URINALYSIS AUTO W/SCOPE (01/12/17) URINE BACTERIA CULTURE (04/07/17) URINE CULTURE/COLONY COUNT (05/15/17) Problem List Initiated/Reviewed/Updated: Yes Plan: surgical consult dictated ERIC
--- NOTE | 2017-05-25 07:09 | PCM.DCSUM1 ---
Discharge Summary - Hospital Course Brief History: Admitted for abdominal pain and after a brief questionable period of diminished responsiveness. - Discharge Data Discharge Date: 05/25/17 Discharge Disposition: Home, Self-Care 01 Condition: Good - Patient Summary/Data Consults: Consultations 05/24/17 08:00 Consult to Physician [CONS] Routine Hospital Course: Admitted for workup of abdominal pain. Had brief period of altered responsiveness prior to and immediately after arrival in ER. Resolved and workup including head CT and drug screen negative. History of DVT and shortness of breath. CT angio negative. Primary complaint abdominal pain. Slightly elevated LFTs. Vitals and blood pressure all normal. Abdominal ultrasound showed gall stones and wall thickening. General surgery recommends cholecystectomy when not immediately . Pain controlled and recommend discharge home. No pain meds as Dr. Severino wants her to represent if pain that severe returns for surgery. Followup with him in 1 week. - Patient Instructions Diet, Other: low fat Activity: Rest and Relax Today Driving: May Drive Today Notify Provider of: Fever, Increased Pain, Swelling and Redness, Drainage, Nausea and/or Vomiting - Discharge Plan Home Medications: Home Meds Ibuprofen [IJD: Ibuprofen] 600 mg PO Q4H PRN #30 tablet 05/23/17 [Rx] Patient Handouts: Cholelithiasis, Cholelithiasis, Mnca-if-Dyxs, Low-Fat Diet for Pancreatitis or Gallbladder Conditions Forms: ED Department Discharge Referrals: Daryn Severino MD [Physician] - (1 week) Ke Kay MD [Physician] - (2 weeks) - Discharge Summary/Plan Comment DC Time >30 min.: No - General Info Functional Status: Reports: Pain Controlled - Review of Systems General: Reports: No Symptoms HEENT: Reports: No Symptoms Pulmonary: Reports: No Symptoms Cardiovascular: Reports: No Symptoms Gastrointestinal: Reports: No Symptoms Genitourinary: Reports: No Symptoms Musculoskeletal: Reports: No Symptoms Skin: Reports: No Symptoms Neurological: Reports: No Symptoms Psychiatric: Reports: No Symptoms - Patient Data Vitals - Most Recent: Last Vital Signs Temp 36.4 C 05/24/17 14:57 Pulse 70 05/24/17 14:57 Resp 14 05/24/17 14:57 BP 121/78 05/24/17 14:57 Pulse Ox 97 05/24/17 14:57 Weight - Most Recent: 81.647 kg I&O - Last 24 hours: Intake & Output 05/24/17 05/25/17 05/25/17 22:59 06:59 14:59 Intake Total 2619 Balance 2619 Lab Results - Last 24 hrs: Laboratory Results - last 24 hr 05/24/17 Range/Units 12:01 Hemoglobin A1c 6.20 (4.50-6.20) % Med Orders - Current: Current Medications Discontinued Medications Docusate Sodium (Colace) 100 mg PO BID PRN PRN Reason: Constipation Hydralazine HCl (Apresoline) 20 mg IVPUSH Q4H PRN PRN Reason: Hypertension Sodium Chloride (Normal Saline) 100 mls @ 60 mls/hr IV ASDIRECTED [facility] Last Admin: 05/24/17 05:43 Dose: 60 mls/hr Sodium Chloride (Normal Saline) 500 mls @ 999 mls/hr IV .BOLUS ONE Stop: 05/24/17 06:01 Last Admin: 05/24/17 05:57 Dose: 999 mls/hr Sodium Chloride (Normal Saline) 1,000 mls @ 125 mls/hr IV ASDIRECTED [place] Sodium Chloride (Normal Saline) 1,000 mls @ 125 mls/hr IV ASDIRECTED [facility] Last Admin: 05/24/17 10:47 Dose: 125 mls/hr Magnesium Sulfate 2 gm/ Premix 50 mls @ 50 mls/hr IV ONETIME ONE Stop: 05/24/17 13:44 Last Admin: 05/24/17 13:35 Dose: 50 mls/hr Iopamidol (Isovue-370 (76%)) 100 ml IVPUSH ONETIME ONE Stop: 05/24/17 05:24 Last Admin: 05/24/17 05:43 Dose: 100 ml Magnesium Sulfate (Pharmacy To Dose - Magnesium Replacement) 1 dose .XX ASDIRECTED [facility] Metoprolol Tartrate (Lopressor) 5 mg IVPUSH Q4H PRN PRN Reason: Tachycardia Naloxone HCl (Narcan) Confirm Administered Dose 2 mg .ROUTE .STK-MED ONE Stop: 05/24/17 03:34 Last Admin: 05/24/17 06:11 Dose: Not Given Naloxone HCl (Narcan) 2 mg IVPUSH ONETIME ONE Stop: 05/24/17 03:43 Last Admin: 05/24/17 03:37 Dose: 2 mg Naloxone HCl (Narcan) 2 mg IVPUSH ONETIME ONE Stop: 05/24/17 03:43 Last Admin: 05/24/17 03:34 Dose: 2 mg Oxycodone/Acetaminophen (Percocet 325-5 Mg) 2 tab PO Q6H PRN PRN Reason: Pain Last Admin: 05/24/17 08:21 Dose: 2 tab Potassium Chloride (Pharmacy To Dose - Potassium Replacement) 1 dose .XX ASDIRECTED [facility] Sodium Chloride (Saline Flush) 10 ml FLUSH ONETIME ONE Stop: 05/24/17 05:24 Last Admin: 05/24/17 05:43 Dose: 10 ml - Exam General: Reports: Alert, Oriented HEENT: Reports: Pupils Equal, Pupils Reactive, EOMI, Mucous Membr. Moist/[place] Neck: Reports: Supple Lungs: Reports: Clear to Auscultation, Normal Respiratory Effort Cardiovascular: Reports: Regular Rate, Regular Rhythm GI/Abdominal Exam: Normal Bowel Sounds, Soft, No Organomegaly, No Distention, No Abnormal Bruit, No Mass Back Exam: Reports: Normal Inspection, Full Range of Motion Extremities: Normal Inspection, Normal Range of Motion, Non-Tender, No Pedal Edema, Normal Capillary Refill Skin: Reports: Warm, Dry, Intact Wound/Incisions: Reports: Healing Well Neurological: Reports: No New Focal Deficit Psy/Mental Status: Reports: Alert, Normal Affect, Normal Mood *Q Meaningful Use (DIS) - VTE *Q VTE Criteria *Q: - Stroke *Q Stroke Criteria *Q: - AMI *Q AMI Criteria *Q:
--- NOTE | 2017-05-25 17:30 | CT ---
CT chest Technique: Multiple axial sections through the chest were obtained. Intravenous contrast was utilized. Study has been performed as a pulmonary angiogram protocol. Comparison: No previous chest CT. Findings: Pulmonary arteries are fairly well-opacified. No filling defects are seen to indicate pulmonary embolism. Mediastinum and hilar regions show no adenopathy or mass. No axillary adenopathy is seen. Small portion of the visualized upper abdominal structures are within normal limits. Lungs are clear. No abnormal parenchymal densities are seen. No pleural effusions are seen. No pneumothorax is seen. Bone window settings were reviewed which appear within normal limits for the patient's age. Impression: 1. No findings of pulmonary embolism. Other portions of the contrast-enhanced CT study of the chest appear within normal limits. No acute abnormality is seen. Diagnostic code #1 I agree with preliminary report issued by [facility] ([facility] preliminary report dictated on 05/24/17, 6:59 AM Central Time)
--- NOTE | 2017-05-25 17:30 | CT ---
Head CT Technique: Multiple axial sections through the brain were obtained. Intravenous contrast was not utilized. Comparison: No previous intracranial imaging. Findings: Ventricles along with basal cisterns and sulci over the convexities are within normal limits for the patient's age. No abnormal parenchymal densities are seen. No evidence of intracranial hemorrhage. No midline shift or mass effect is seen. Slight mucosal thickening is seen within the sphenoid sinuses. Other visualized sinuses are clear. No acute calvarial abnormality is seen. Impression: 1. Slight mucosal thickening within the sphenoid sinus which is likely incidental. 2. Other portions of the noncontrast head CT study appear within normal limits. No acute abnormality is identified. Diagnostic code #2 I agree with preliminary report issued by [facility] ([facility] preliminary report dictated on 05/24/17, 6:59 AM Central Time)
--- NOTE | 2017-05-25 17:30 | CR ---
Lumbar spine: AP, lateral and coned-down lateral views centered to the lumbosacral junction were obtained. Comparison: No previous lumbar spine imaging. Findings: Vertebral body heights and disc spaces are maintained. Pedicles as well as transverse and spinous processes are intact. Sacroiliac joints are within normal limits. No fracture or subluxation is seen. Impression: 1. No abnormality is seen on three-view lumbar spine study. Diagnostic code #1
--- NOTE | 2017-05-25 17:30 | CR ---
Abdomen: Supine view of the abdomen was obtained. Comparison: No prior abdominal x-ray. Bowel gas pattern appears within normal limits. No abnormal calcifications or discrete soft tissue abnormality is seen. Bony structures appear within normal limits for the patient's age. Impression: 1. No abnormality is identified on supine abdominal x-ray. Diagnostic code #1
== END 2017-05-24 18:40 | disposition home or self-care (01) ==
LOC: JD.ED 03:26 → JD.MS 07:19 → INTOOBSV 07:19 → JD.MS 07:23 → UNDOADMIN 07:23 → UNDODISIN 18:40
PROVIDERS: ADMIT Obstetrics & Gynecology; ATTEND Obstetrics & Gynecology
DX: K80.20 Calculus of gallbladder without cholecystitis without obstruction (principal); R41.82 Altered mental status, unspecified; R06.02 Shortness of breath; R74.0 Nonspecific elevation of levels of transaminase and lactic acid dehydrogenase [LDH]; E80.6 Other disorders of bilirubin metabolism; E83.42 Hypomagnesemia; Z86.718 Personal history of other venous thrombosis and embolism
CPT/HCPCS: 36415; 36600; 70450; 71275; 72100; 74000; 76700; 80053; 80306; 81001; 82248; 82803; 82962; 82977; 83036; 83605; 83735; 85025; 85379; 85610; 85730; 93005; 96361; 96365; 96375; 99285; A9270; G0378; G0480; J2310; J7030; J7040; J7050; P9612; Q9967; 96374; J3475

== ENCOUNTER 2017-05-25 19:28 | Observation (INO) | payer BC ==
[2017-05-25] MEDS ORDERED: Sodium Chloride 0.9% 10 ML Syringe FLUSH PRN (19:59)
[2017-05-25] MEDS ORDERED: fentaNYL 100 MCG/2 ML SDV IVPUSH ONE (20:12)
[2017-05-25] MEDS ORDERED: Ondansetron 4 MG/2 ML SDV IVPUSH ONE (20:13)
[2017-05-25] MEDS ORDERED: Sodium Chloride 0.9% 1,000 ML IV ONE (20:13)
--- NOTE | 2017-05-25 20:13 | EDM.PDOC ---
ED HPI GENERAL MEDICAL PROBLEM - General Chief Complaint: Abdominal Pain Stated Complaint: STONE IN GALBLATER Time Seen by Provider: 05/25/17 19:58 Source of Information: Reports: Patient History Limitations: Reports: No Limitations - History of Present Illness INITIAL COMMENTS - FREE TEXT/NARRATIVE: 36 y/o F approx 5 days post- from vaginal delivery presents with RUQ pain. She was re-admitted on 05/23 for episode of pain/altered mental status and diagnosed with gallstones. Decision was made to avoid surgery for now if possible to allow her to more thoroughly recover from delivery. She was sent home yesterday. Was doing ok at home until this afternoon. She ate vegetables for lunch. Abdominal pain returned around 3pm this afternoon. Sharp, RUQ, radiates to back. Moderate to severe. No relieving factors. No CP/SOB. No vomiting. No fever. No additional complaints. She is trying to breastfeed and pumped during her last admission. 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: Endocrine/Metabolic History: Reports: Diabetes, Gestational Other Endocrine/Metabolic History: diet controlled gestational diabetes Hematologic History: Reports: Blood Transfusion(s) Dermatologic History: Reports: Other (See Below) Other Dermatologic History: pruritus gravidarum Social & Family History - Family History Family Medical History: Noncontributory - Tobacco Use Smoking Status *Q: Never Smoker Second Hand Smoke Exposure: No - Caffeine Use Caffeine Use: Reports: Coffee - Recreational Drug Use Recreational Drug Use: No ED ROS GENERAL - Review of Systems Review Of Systems: See Below Constitutional: Denies: Fever HEENT: Reports: No Symptoms Respiratory: Denies: Shortness of Breath, Cough Cardiovascular: Denies: Chest Pain Endocrine: Reports: No Symptoms GI/Abdominal: Reports: Abdominal Pain : Reports: No Symptoms Musculoskeletal: Reports: No Symptoms Skin: Reports: No Symptoms Neurological: Reports: No Symptoms ED EXAM, GI/ABD - Physical Exam Exam: See Below Exam Limited By: No Limitations General Appearance: Alert, WD/WN, Mild Distress Eyes: Bilateral: Normal Appearance Ears: Normal External Exam Nose: Normal Inspection Throat/Mouth: Normal Inspection Head: Atraumatic, Normocephalic Neck: Normal Inspection, Supple, Non-Tender, Full Range of Motion Respiratory/Chest: No Respiratory Distress, Lungs Clear, Normal Breath Sounds Cardiovascular: Normal Peripheral Pulses, Regular Rate, Rhythm, No Edema, No Murmur GI/Abdominal Exam: Soft, Other (RUQ and epigastric TTP, no rebound/guarding) Back Exam: Normal Inspection. No: CVA Tenderness (L), CVA Tenderness (R) Extremities: Normal Inspection Neurological: Alert, Oriented, Normal Cognition, No Motor/Sensory Deficits Psychiatric: Normal Affect, Normal Mood Skin Exam: Warm, Dry, Intact, Normal Color, No Rash Course - Vital Signs Last Recorded V/S: Last Vital Signs Temp 36.8 C 05/25/17 19:53 Pulse 97 05/25/17 19:53 Resp 18 05/25/17 19:53 BP 170/98 H 05/25/17 19:53 Pulse Ox 99 05/25/17 19:53 - Orders/Labs/Meds Orders: Active Orders 24 hr Category Date Time Status Peripheral IV Care [RC] . DIRECTED Care 05/25/17 20:00 Active Peripheral IV Care [RC] . DIRECTED Care 05/25/17 20:00 Active Sodium Chloride 0.9% [Saline Flush] Med 05/25/17 19:59 Active 10 ml FLUSH ASDIRECTED PRN Peripheral IV Insertion Adult [OM.PC] Routine Oth 05/25/17 20:00 Ordered Medication Orders Sodium Chloride (Saline Flush) 10 ml FLUSH ASDIRECTED PRN PRN Reason: Keep Vein Open Labs: Laboratory Tests 05/25/17 05/25/17 05/25/17 Range/Units 20:19 20:19 21:41 WBC 6.01 (3.98-10.04) K/mm3 RBC 3.65 L (3.98-5.22) M/mm3 Hgb 10.7 L (11.2-15.7) gm/L Hct 32.2 L (34.1-44.9) % MCV 88.2 (79.4-94.8) fl MCH 29.3 (25.6-32.2) pg MCHC 33.2 (32.2-35.5) g/dl RDW Std Deviation 41.9 (36.4-46.3) fL Plt Count 221 (182-369) K/mm3 MPV 10.5 (9.4-12.3) fl Neut % (Auto) 59.9 (34.0-71.1) % Lymph % (Auto) 30.1 (19.3-51.7) % [place] % (Auto) 8.2 (4.7-12.5) % Eos % (Auto) 1.2 (0.7-5.8) Baso % (Auto) 0.3 (0.1-1.2) % Neut # (Auto) 3.60 (1.56-6.13) K/mm3 Lymph # (Auto) 1.81 (1.18-3.74) K/mm3 [place] # (Auto) 0.49 H (0.24-0.36) K/mm3 Eos # (Auto) 0.07 (0.04-0.36) K/mm3 Baso # (Auto) 0.02 (0.01-0.08) K/mm3 Sodium 140 (136-145) mEq/L Potassium 3.9 (3.5-5.1) mEq/L Chloride 107 (98-107) mEq/L Carbon Dioxide 26 (21-32) mEq/L Anion Gap 10.9 (5-15) BUN 9 (7-18) mg/dL Creatinine 0.8 (0.55-1.02) mg/dL Est Cr Clr Drug Dosing 80.42 mL/min Estimated GFR (MDRD) > 60 (>60) mL/min BUN/Creatinine Ratio 11.3 L (14-18) Glucose 82 (74-106) mg/dL Calcium 8.3 L (8.5-10.1) mg/dL Total Bilirubin 2.0 H (0.2-1.0) mg/dL AST 141 H (15-37) U/L ALT 219 H (14-59) U/L Alkaline Phosphatase 287 H (46-116) U/L Total Protein 6.1 L (6.4-8.2) g/dl Albumin 2.5 L (3.4-5.0) g/dl Globulin 3.6 gm/dL Albumin/Globulin Ratio 0.7 L (1-2) Lipase 106 (73-393) U/L Urine Color Yellow (Yellow) Urine Appearance Cloudy H (Clear) Urine pH 6.0 (5.0-8.0) Ur Specific [place] > or = 1.030 (1.005-1.030) Urine Protein 2+ H (Negative) Urine Glucose (UA) Negative (Negative) Urine Ketones Trace H (Negative) Urine Occult Blood 3+ H (Negative) Urine Nitrite Positive H (Negative) Urine Bilirubin 2+ H (Negative) Urine Urobilinogen 1.0 (0.2-1.0) Ur Leukocyte Esterase Trace H (Negative) Urine RBC 40-50 H (0-5) /hpf Urine WBC 5-10 H (0-5) /hpf Ur Epithelial Cells 5-10 H (0-5) /hpf Urine Bacteria Many H (FEW) /hpf Urine Mucus Few (FEW) /hpf Meds: Medications Generic Name Dose Route Start Last Admin Trade Name Freq PRN Reason Stop Dose Admin Sodium Chloride 10 ml 05/25/17 19:59 Saline Flush FLUSH ASDIRECTED PRN Keep Vein Open Discontinued Medications Generic Name Dose Route Start Last Admin Trade Name Freq PRN Reason Stop Dose Admin Fentanyl 75 mcg 05/25/17 20:12 05/25/17 20:26 Sublimaze IVPUSH 05/25/17 20:13 75 mcg ONETIME ONE Administration Sodium Chloride 1,000 mls @ 1,000 mls/hr 05/25/17 20:13 05/25/17 20:27 Normal Saline IV 05/25/17 21:12 1,000 mls/hr ONETIME ONE Administration Ondansetron HCl 4 mg 05/25/17 20:13 05/25/17 20:27 Zofran IVPUSH 05/25/17 20:14 4 mg ONETIME ONE Administration - Re-Assessments/Exams Free Text/Narrative Re-Assessment/Exam: 05/25/17 22:56 BP elevated upon arrival, now 150/80. LFT's mildly worse compared to yesterday. Patient is feeling better - no RUQ pain at this time. Discussed with Dr. Nathan, who agrees to admit the patient for observation of pain, LFT' s, and BP, with possible surgical consult in the AM. Departure - Departure Time of Disposition: 22:00 Disposition: Refer to Observation Clinical Impression: Biliary colic Abdominal pain Qualifiers: Abdominal location: right upper quadrant Qualified Code(s): R10.11 - Right upper quadrant pain - Discharge Information - My Orders Last 24 Hours: My Active Orders 05/25/17 19:59 Sodium Chloride 0.9% [Saline Flush] 10 ml FLUSH ASDIRECTED PRN 05/25/17 20:00 Peripheral IV Care [RC] . DIRECTED Peripheral IV Care [RC] . DIRECTED Peripheral IV Insertion Adult [OM.PC] Routine - Assessment/Plan Last 24 Hours: My Active Orders 05/25/17 19:59 Sodium Chloride 0.9% [Saline Flush] 10 ml FLUSH ASDIRECTED PRN 05/25/17 20:00 Peripheral IV Care [RC] . DIRECTED Peripheral IV Care [RC] . DIRECTED Peripheral IV Insertion Adult [OM.PC] Routine
[2017-05-25] MEDS ORDERED: Ondansetron 4 MG Tab.DIS PO PRN (23:11)
[2017-05-25] MEDS ORDERED: Ibuprofen 600 MG Tab PO PRN (23:11)
[2017-05-25] MEDS ORDERED: Morphine 4 MG/ML Syringe IVPUSH PRN (23:11)
--- NOTE | 2017-05-26 07:21 | CONS ---
CONSULTING PHYSICIAN: Daryn Severino MD DATE OF CONSULTATION: 05/24/2017 HISTORY: This is a 36-year-old female, gravid 5, status post spontaneous vaginal delivery on 05/21/2017. She was discharged yesterday, got home about 1300 hours, and then it began to have pain in the right upper quadrant, which radiated around into the back, it was quite severe and intense, progressively increasing. Urge her to take a deep breath and straighten up, at night she was feeding baby found it difficult that the woke up at 0100 hours. She was moaning in bed, found at difficult to arouse her. She was brought to the emergency room, where she was evaluated, CT scan was done, which was normal. The patient was later admitted to the hospital to Med/Surg with tele, given Percocet in the morning about 8 o'clock, and her pain resolved. There is no nausea or vomiting with it. Further workup was that of an ultrasound which demonstrated gallstones, no thickening of the gallbladder wall. The patient was noted to have elevated liver enzymes of AST 151, ALT 193, and the bilirubin was slightly elevated 1.7. The patient currently is feeling good, up and moving around and having no particular complaints. The patient says that her aunties had this, but her mother has not had gallbladder problems. REVIEW OF SYSTEMS: No chest pain, shortness of breath, cough, hoarseness, wheezing, fainting, weakness, numbness, or convulsions. No nausea or vomiting, just had the abdominal pain. The patient is feeling good. She does have a medical problems of edema of the legs which is slowly resolving. She is breast-feeding and she has some gestational diabetes, although her blood sugar is 122. The patient's hemoglobin and white count 9000, and hemoglobin 11.8. SOCIAL HISTORY: No smoking at this time and no use of drugs. MEDICATIONS: Per medication reconciliation form. PHYSICAL EXAMINATION: GENERAL: Reveals alert, cooperative female. VITAL SIGNS: Temperature 36, pulse 76, respirations 13, and blood pressure 142/94. SKIN: Warm and dry. PSYCHIATRIC: Alert and oriented. NEUROLOGIC: She is alert and cooperative. Cranial nerves 3 through 12 intact. Moves all 4 extremities. No sensorineural deficit. Intact. EYES: Sclerae white. Extraocular muscle motion normal. Oral cavity, healthy mucous membrane with mouth and tongue. NECK: Supple. No nodes. No thyromegaly. LUNGS: Clear. No rales, rhonchi, fremitus, or dullness. HEART: Tones regular rate. No S3, S4, jugular venous distention. ABDOMEN: Soft. No guarding or rebound. Slight tenderness in right upper quadrant. LABORATORY DATA: Ultrasound was reviewed. ASSESSMENT: Cholelithiasis episode of gallbladder colic. Because of her status would try to delay any surgery and have her follow up until she recovers more thoroughly from her . If, however, pain does recur we will have to proceed with surgery. We would recommend a low-fat diet. Follow up and see me in a week. MMODAL /[id number]
--- NOTE | 2017-05-26 07:32 | PCM.HP ---
H&P History of Present Illness - General Date of Service: 05/25/17 Admit Problem/Dx: Admission Diagnosis/Problem Admission Diagnosis/Problem Gallstones with biliary obstruction Source of Information: Patient History Limitations: Reports: No Limitations - History of Present Illness Initial Comments - Free Text/Narative: 36 year old discharged yesterday evening with gall bladder pain. Represented to ER this evening with pain. Blood pressure elevated so decision made to admit not as much for pain but for remote concerns for pre-ecclampsia. 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: Reports: Other OB/BYN History: delivery 05/21 vag delivery Endocrine/Metabolic History: Reports: Diabetes, Gestational Other Endocrine/Metabolic History: diet controlled gestational diabetes Hematologic History: Reports: Blood Transfusion(s) Other Hematologic History: post hemorrage Dermatologic History: Reports: Other (See Below) Other Dermatologic History: pruritus gravidarum Social & Family History - Family History Family Medical History: Noncontributory - Tobacco Use Smoking Status *Q: Never Smoker Second Hand Smoke Exposure: No - Caffeine Use Caffeine Use: Reports: Coffee - Recreational Drug Use Recreational Drug Use: No H&P Review of Systems - Review of Systems: Review Of Systems: See Below General: Reports: No Symptoms HEENT: Reports: No Symptoms Pulmonary: Reports: No Symptoms Cardiovascular: Reports: No Symptoms Gastrointestinal: Reports: Abdominal Pain Genitourinary: Reports: No Symptoms Musculoskeletal: Reports: No Symptoms Skin: Reports: No Symptoms Psychiatric: Reports: No Symptoms Neurological: Reports: No Symptoms Hematologic/Lymphatic: Reports: No Symptoms Immunologic: Reports: No Symptoms Exam - Exam Exam: See Below - Vital Signs Vital Signs: Last Vital Signs Temp 36.8 C 05/26/17 02:45 Pulse 50 L 05/26/17 02:45 Resp 14 05/26/17 02:45 BP 129/76 05/26/17 02:45 Pulse Ox 94 L 05/26/17 02:45 Weight: 82.146 kg - Exam General: Alert, Oriented HEENT: Conjunctiva Clear, EACs Clear, EOMI, Hearing Intact, Mucosa Moist & [place] , Nares Patent, Normal Nasal Septum, Posterior Pharynx Clear, TMs Clear Lungs: Clear to Auscultation, Normal Respiratory Effort Cardiovascular: Regular Rate GI/Abdominal Exam: Normal Bowel Sounds, Soft, Non-Tender Back Exam: Normal Inspection, Full Range of Motion, NT Extremities: Normal Inspection, Normal Range of Motion, Non-Tender, No Pedal Edema, Normal Capillary Refill Skin: Warm, Dry, Intact Neuro Extensive - Motor, Sensory, Reflexes: CN II-XII Intact, Normal Gait, Normal Reflexes - Patient Data Result Diagrams: 05/25/17 20:19 05/25/17 20:19 *Q Meaningful Use (ADM) - VTE *Q VTE Criteria *Q: - Stroke *Q Stroke Criteria *Q: - AMI *Q AMI Criteria *Q: Problem List Initiated/Reviewed/Updated: Yes Orders Last 24hrs: Active Orders 24 hr Category Date Time Status Patient Status [ADT] Routine ADT 05/25/17 22:26 Active Activity as Tolerated [RC] .Routine Care 05/25/17 23:11 Active Communication Order [RC] QSHIFT Care 05/25/17 23:11 Active Low Fat Diet [DIET] Diet 05/25/17 Breakfast Active Ibuprofen [Motrin] Med 05/25/17 23:11 Active 600 mg PO QID PRN Morphine Med 05/25/17 23:11 Active 4 mg IVPUSH Q1H PRN Ondansetron [Zofran ODT] Med 05/25/17 23:11 Active 4 mg PO Q4H PRN Resuscitation Status Routine Resus Stat 05/25/17 23:11 Ordered Medication Orders Ibuprofen (Motrin) 600 mg PO QID PRN PRN Reason: Pain Morphine Sulfate (Morphine) 4 mg IVPUSH Q1H PRN PRN Reason: Pain (severe 7-10) Ondansetron HCl (Zofran Odt) 4 mg PO Q4H PRN PRN Reason: Nausea/Vomiting Sodium Chloride (Saline Flush) 10 ml FLUSH ASDIRECTED PRN PRN Reason: Keep Vein Open Assessment/Plan Comment:: Represented with recurrent pain. Blood pressure mildly elevated so decision to admit for observation to ensure blood pressure pain related and not pre-ecclampsia related.
[2017-05-26 08:17] VITALS: BP 158/103
--- NOTE | 2017-05-26 09:01 | PCM.DCSUM1 ---
Discharge Summary - Hospital Course Brief History: Admitted with pain. Blood pressures well controlled. - Discharge Data Discharge Date: 05/26/17 Discharge Disposition: Home, Self-Care 01 Condition: Good - Patient Summary/Data Hospital Course: Pain well controlled. Discussed with Dr. Severino who will make arrangements for surgical management - likely sooner. Reclarified with . Blood clot post prior delivery not DVT or PE. Sounds like vaginal bleeding, hemorrhage and clot. - Patient Instructions Diet: Usual Diet as Tolerated Activity: No Strenuous Activities Driving: May Drive Today Showering/Bathing: May Shower Wound/Incision Care: Keep Operative Site/Wound Site Clean and Dry Notify Provider of: Fever, Increased Pain, Swelling and Redness, Drainage, Nausea and/or Vomiting - Discharge Plan Home Medications: Home Meds Ibuprofen [IJD: Ibuprofen] 600 mg PO Q4H PRN #30 tablet 05/23/17 [Rx] Patient Handouts: Cholelithiasis, [id number], Urinary Tract Infection, Adult , [id number] Forms: ED Department Discharge Referrals: Ke Kay MD [Primary Care Provider] - - Discharge Summary/Plan Comment DC Time >30 min.: No - General Info Functional Status: Reports: Pain Controlled - Review of Systems General: Reports: No Symptoms HEENT: Reports: No Symptoms Pulmonary: Reports: No Symptoms Cardiovascular: Reports: No Symptoms Gastrointestinal: Reports: No Symptoms Genitourinary: Reports: No Symptoms Musculoskeletal: Reports: No Symptoms Skin: Reports: No Symptoms Neurological: Reports: No Symptoms Psychiatric: Reports: No Symptoms - Patient Data Vitals - Most Recent: Last Vital Signs Temp 36.8 C 05/26/17 08:16 Pulse 53 L 05/26/17 08:16 Resp 14 05/26/17 02:45 BP 158/103 H 05/26/17 08:16 Pulse Ox 94 L 05/26/17 08:16 Weight - Most Recent: 82.146 kg I&O - Last 24 hours: Intake & Output 05/25/17 05/26/17 05/26/17 22:59 06:59 14:59 Intake Total 250 Balance 250 Med Orders - Current: Current Medications Ibuprofen (Motrin) 600 mg PO QID PRN PRN Reason: Pain Morphine Sulfate (Morphine) 4 mg IVPUSH Q1H PRN PRN Reason: Pain (severe 7-10) Ondansetron HCl (Zofran Odt) 4 mg PO Q4H PRN PRN Reason: Nausea/Vomiting Sodium Chloride (Saline Flush) 10 ml FLUSH ASDIRECTED PRN PRN Reason: Keep Vein Open Discontinued Medications Fentanyl (Sublimaze) 75 mcg IVPUSH ONETIME ONE Stop: 05/25/17 20:13 Last Admin: 05/25/17 20:26 Dose: 75 mcg Sodium Chloride (Normal Saline) 1,000 mls @ 1,000 mls/hr IV ONETIME ONE Stop: 05/25/17 21:12 Last Admin: 05/25/17 20:27 Dose: 1,000 mls/hr Ondansetron HCl (Zofran) 4 mg IVPUSH ONETIME ONE Stop: 05/25/17 20:14 Last Admin: 05/25/17 20:27 Dose: 4 mg - Exam General: Reports: Alert, Oriented HEENT: Reports: Pupils Equal, Pupils Reactive, EOMI, Mucous Membr. Moist/[place] Neck: Reports: Supple Lungs: Reports: Clear to Auscultation, Normal Respiratory Effort Cardiovascular: Reports: Regular Rate, Regular Rhythm GI/Abdominal Exam: Normal Bowel Sounds, Soft, Non-Tender, No Organomegaly, No Distention, No Abnormal Bruit, No Mass, Pelvis Stable Rectal (Female) Exam: Normal Exam, Normal Rectal Tone Back Exam: Reports: Normal Inspection, Full Range of Motion Extremities: Normal Inspection, Normal Range of Motion, Non-Tender, No Pedal Edema, Normal Capillary Refill Skin: Reports: Warm, Dry, Intact Wound/Incisions: Reports: Healing Well Neurological: Reports: No New Focal Deficit Psy/Mental Status: Reports: Alert, Normal Affect, Normal Mood *Q Meaningful Use (DIS) - VTE *Q VTE Criteria *Q: - Stroke *Q Stroke Criteria *Q: - AMI *Q AMI Criteria *Q:
== END 2017-05-26 11:15 | disposition home or self-care (01) ==
LOC: JD.ED 19:28 → JD.MS 22:00
PROVIDERS: ADMIT Obstetrics & Gynecology; ATTEND Obstetrics & Gynecology
DX: K80.21 Calculus of gallbladder without cholecystitis with obstruction (principal); N39.0 Urinary tract infection, site not specified; O24.420 Gestational diabetes mellitus in childbirth, diet controlled
CPT/HCPCS: 36415; 80053; 81001; 83690; 85025; 96361; 96374; 96375; 99285; J2405; J3010; J7040; 99284; G0378